=== PATIENT | male | born 1945 | race Caucasian/White ===

== ENCOUNTER 2020-04-28 00:49 | Outpatient (CLI) | payer OTHER, SELFPAY ==
[2020-04-28 18:01] LABS: SARS-CoV-2 RNA PCR Negative
== END 2020-04-28 00:50 | disposition home or self-care (01) ==
LOC: ANHCOVIDDT 00:49
PROVIDERS: PCP Student in an Organized Health Care Education/Training Program; Visit Provider Internal Medicine Gastroenterology
DX: Z01.812 Encounter for preprocedural laboratory examination (principal); Z20.828 Contact with and (suspected) exposure to other viral communicable diseases
CPT/HCPCS: 87635; C9803; U0003

== ENCOUNTER 2020-04-30 01:46 | Day surgery (SDC) | payer OTHER, SELFPAY ==
[2020-04-24 09:36] VITALS: BMI 19.5
[2020-04-30 08:35] VITALS: BP 147/74; RESP 16; TEMP 36.3; O2SAT 100
--- NOTE | 2020-04-30 08:57 | WPDGICN ---
Assessment and Plan Assessment and plan (1) History of colon polyps: Code(s): Z86.010 - Personal history of colonic polyps Status: Acute Assessment and Plan: Patient has had colon polyps in several previous endoscopies. Most recently 2017. Plan is for surveillance colonoscopy now and at intervals in the future. 3-5 years is anticipated. Further recommendations will be given after endoscopy. GI Consult Note Consult date/time: 04/30/20 08:57 HPI: Omar Gil Jr. is a 74 year old male seen in evaluation at the request of Dr Christensen.. Patient was found to have tubular adenomatous colon polyp in 2017. Patient presents today for follow-up examination. His current weight appetite bowel movements are normal. Denies abdominal pain he has had no bleeding in his stool. He has had several colon polyps in the past prior to the last colonoscopy as well. His family history is noncontributory. Review of Systems Review of Systems: All systems reviewed & are unremarkable except as noted in HPI and below PMFSH Social History Social History (System 04/11/20 @ 10:23 by Myriam Mcgraw) Smoking packs per day: 0.5 Smoking cigarettes per day: 10.0 Years smoked: 10 Smoking pack-years: 5.00 Smoking status: Former smoker Tobacco type: cigarettes Alcohol intake: current Drinks per week: 1 Substance use: never Substance use type: does not use Living arrangements: alone Spiritual care concerns: No Meds Home Medications and Allergies Home Medications Medication Instructions Recorded Confirmed Type No Home Medications 04/24/20 04/30/20 History Allergies Allergy/AdvReac Type Severity Reaction Status Date / Time No Known Allergies Allergy Verified 04/30/20 08:42 Vital Signs Vital Signs - 24 hr 04/30/20 08:35 Temperature 97.4 F L Respiratory Rate 16 Blood Pressure 147/74 H Pulse Oximetry 100 Exam Narrative: Exam Narrative: Physical exam reveals patient to be alert. Vital signs stable. HEENT exam unremarkable. Lungs are clear to auscultation and percussion. Heart is without murmur or extra sounds. Abdominal exam bowel sounds are present soft nontender with no organomegaly. Digital external rectal exam is normal.
[2020-04-30] MEDS: LACTATED RINGERS 1,000 ML 150 ML IV CONT (08:58)
--- NOTE | 2020-04-30 08:58 | WPDANESEPPF ---
Anes - Initial Pre Proc Eval Procedure: Operation Date: 04/30/20 09:30 Proposed Procedures p Screening Colonoscopy - Ruy Dong MD Date/Time: 04/30/20 08:58 Surgeon: Ruy Dong MD Pre Op Diagnosis: hx of colon polyps Patient Data Age: 74 Gender: M Height: 5 ft 10 in Weight: 61.1 kg Last Vital Signs Temp 36.3 C L 04/30/20 08:35 Resp 16 04/30/20 08:35 BP 147/74 H 04/30/20 08:35 Pulse Ox 100 04/30/20 08:35 Allergies Allergy/AdvReac Type Severity Reaction Status Date / Time No Known Allergies Allergy Verified 04/30/20 08:42 Home Medications Medication Instructions Recorded Confirmed Type No Home Medications 04/24/20 04/30/20 History Patient hx anesthesia problems: none Family hx anesthesia problems: none PMFSH Past Medical History Medical History (Updated 04/30/20 @ 09:01 by Jaron Bray MD) Skin cancer Social History Social History Smoking packs per day: 0.5 Smoking cigarettes per day: 10.0 Years smoked: 10 Smoking pack-years: 5.00 Smoking status: Former smoker Tobacco type: cigarettes Alcohol intake: current Drinks per week: 1 Substance use: never Substance use type: does not use Living arrangements: alone Spiritual care concerns: No Anes - Eval Final PreProcedure Day of Procedure 04/30/20 08:58 Patient weight: thin Heart: regular rate and rhythm Lungs: clear to auscultation Airway: Mallampati scale class II Neurological: other (alert) Last oral intake: >/= 8 hours ASA classification: II Emergent: no Anesthetic plan: proceed Anesthesia type and monitoring: general GIVS and standard monitoring Informed Consent: The patient's anesthetic plan and its attendant risks and benefits were discussed with the patient/family/POA. Questions were solicited and answers provided to the satisfaction of the patient/family/POA.
[2020-04-30 09:53] VITALS: BP 105/59; PULSE 53; RESP 18; O2SAT 100
[2020-04-30 10:03] VITALS: BP 111/62; PULSE 62; RESP 18; O2SAT 100
[2020-04-30 10:11] VITALS: BP 137/64; PULSE 59; RESP 18; O2SAT 100
== END 2020-04-30 10:54 | disposition home or self-care (01) ==
PROVIDERS: PCP Student in an Organized Health Care Education/Training Program; Visit Provider Internal Medicine Gastroenterology
PROC: 0DJD8ZZ Inspection of Lower Intestinal Tract, Via Natural or Artificial Opening Endoscopic (ICD-10-PCS; CPT 45378; principal; 2020-04-30 09:30)
DX: Z12.11 Encounter for screening for malignant neoplasm of colon (principal); D12.2 Benign neoplasm of ascending colon; D17.5 Benign lipomatous neoplasm of intra-abdominal organs; K64.8 Other hemorrhoids; Z86.010 Personal history of colon polyps; Z87.891 Personal history of nicotine dependence
CPT/HCPCS: 45385; 88305; J2704; J7120

== ENCOUNTER → 2021-03-10 10:06 | Outpatient (CLI) | payer OTHER, SELFPAY ==
--- NOTE | ~2021-03-10 | US_ITS ---
EXAMINATION: US aorta [facility] DATE: 03/10/2021 10:17 INDICATION: Screening for abdominal aortic aneurysm, prior tobacco use TECHNIQUE: Grayscale, color Doppler, and pulsed Doppler images of the aorta and common iliac arteries were obtained. COMPARISON: None. FINDINGS: Maximum vascular dimensions are as follows: Proximal aorta: 2.3 cm Mid aorta: 2.0 cm Distal aorta: 1.8 cm Right common iliac artery: 1.3 cm Left common iliac artery: 1.2 cm There is no evidence of abdominal aortic aneurysm. IMPRESSION: 1. No sonographic evidence of abdominal aortic aneurysm. Reviewed, dictated and finalized at location B.
== END ==
PROVIDERS: PCP Student in an Organized Health Care Education/Training Program; Visit Provider Student in an Organized Health Care Education/Training Program
DX: Z87.891 Personal history of nicotine dependence (principal); Z13.6 Encounter for screening for cardiovascular disorders
CPT/HCPCS: 76706

== ENCOUNTER → 2021-06-18 08:15 | Outpatient (CLI) | payer OTHER, SELFPAY ==
--- NOTE | ~2021-06-18 | US_ITS ---
EXAMINATION: US right upper quadrant DATE: 06/18/2021 08:37 INDICATION: Abnormal levels of other serum enzymes. TECHNIQUE: Multiple grayscale and Doppler ultrasound images of the abdomen were obtained. COMPARISON: None FINDINGS: The visualized portions of the head and body of the pancreas are normal. There is a 1.4 cm cyst in the liver. No liver surface nodularity. There is normal flow in main portal vein. The gallbla dder is normal in size. No gallstones or gallbladder wall thickening. There was no sonographic Yusuf sign. The common duct is normal and measures 5 mm. IMPRESSION: 1. No etiology for abnormal liver function tests. Reviewed, dictated and finalized at location A. [facility] ED
== END ==
PROVIDERS: PCP Student in an Organized Health Care Education/Training Program; Visit Provider Student in an Organized Health Care Education/Training Program
DX: R74.8 Abnormal levels of other serum enzymes (principal)
CPT/HCPCS: 76705

== ENCOUNTER 2024-08-20 10:32 | Outpatient (CLI) | payer OTHER, SELFPAY ==
--- NOTE | ~2024-08-20 | DEXA_ITS ---
Bone Density Report Name: HENRY LEVINE Age: 78 Sex: Male Ethnicity: White Date of : 1945 Indication: screening for osteoporosis; height loss; Referring Provider: MERY BRAGG Study: Bone densitometry was performed. Exam Date: August 20, 2024 Accession number: [id number] Bone Density: Region BMD T-score Z-score Classification AP Spine(L1-L4) 0.925 -1.5 -0.4 Osteopenia Femoral Neck (Left) 0.565 -2.7 -1.2 Osteoporosis Total Hip (Left) 0.656 -2.5 -1.5 Osteoporosis Femoral Neck (Right) 0.523 -3.0 -1.5 Osteoporosis Total Hip (Right) 0.636 -2.6 -1.6 Osteoporosis Total Hip Mean 0.646 -2.6 -1.6 Osteoporosis World Health Organization criteria for BMD impression classify patients as: Normal (T-score at or above -1.0), Osteopenia (T-score between -1.0 and -2.5), or Osteoporosis (T-score at or below -2.5). 10-year Fracture Risk: FRAX not reported because: Some T-score for Spine Total or Hip Total or Femoral Neck at or below -2.5 Clinical Information Provided by Patient: Has used the following medications: Vitamin D, Calcium Patient maximum height was 71 No regular weight bearing exercise Does not regularly consume dairy products Drinks caffeinated beverages Impression: The patient has osteoporosis, based on the Right Femoral Neck T-score. Discussion: INCREASED RISK OF FRACTURE. BONE DENSITY IS UNDESIRABLY LOW AT ONE OR MORE SKELETAL SITES, CONSISTENT WITH OSTEOPOROSIS. This patient's lowest T-score meets the World Health Organization's (WHO) criteria for osteoporosis at one or more sites (T-score -2.5 or below). In untreated patients, the risk of osteoporotic fracture increases approximately two-fold for each 1.0 SD decrease in T-score. Low bone density is not the only risk factor for fracture; also consider factors such as patient's age, frailty or poor health, risk of falling, risk of injury, previous osteoporotic fracture, family history of osteoporosis, cigarette smoking, low body weight, etc. Not everyone with low bone mineral density has osteoporosis; osteomalacia and other metabolic bone disorders should also be considered. Patients who have osteoporosis should be evaluated for specific diseases and conditions (secondary causes) that may cause or contribute to bone loss. The National Osteoporosis Foundation (NOF) recommends pharmacologic intervention for men with BMD at this level (a T-score of -2.5 or below). The patient should follow a healthful lifestyle (good nutrition with adequate calcium and vitamin D, and appropriate weight-bearing exercise). Follow-Up: Consider repeating this study in 2 years to reassess this patient's status, or sooner if there is some new clinical indication. Reported by: DARSHAN on 08/20/2024 11:12:00 AM. Reviewed, dictated and finalized at location [facility]
== END 2024-08-20 10:33 | disposition home or self-care (01) ==
LOC: ANHIMG 10:33
PROVIDERS: PCP Student in an Organized Health Care Education/Training Program; Visit Provider Internal Medicine Endocrinology, Diabetes & Metabolism
DX: M81.0 Age-related osteoporosis without current pathological fracture (principal); M85.89 Other specified disorders of bone density and structure, multiple sites; N25.81 Secondary hyperparathyroidism of renal origin; Z13.820 Encounter for screening for osteoporosis
CPT/HCPCS: 77080

== ENCOUNTER 2024-11-29 14:01 | Outpatient (CLI) | payer OTHER, SELFPAY ==
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
--- OUTSIDE RECORDS SUMMARY | 2024-11-29 14:51 | XMS_ITS | Encounter Summary ---
Author Organization [facility] Address [address] [place] [address] Care Team Providers Care It Security Project Manager Name Role Phone Mil Christensen DO Primary Care Provider + Melinda Hastings RN Unavailable [phone] Encounter Details Date Type Department Care Team (Late st Contact Info) Description 07/03/2024 20linest Message Enc [facility] Medical Group Family & Internal Medicine [facility] [address] [place] [address] Mil Christensen DO [address] [place], [place] [id number] Vaccines? Social History Tobacco Use Types Packs/Day Years Used Date Smoking Tobacco: Former Cigarettes 0.5 10 0 08/01/1959 - 08/01/1969 Smokeless Tobacco: Never Comments:quit 40+ yrs ago re ported on 03/13/20 Alcohol Use Standard Drinks/Week Comments Yes 1.7 (1 standard drink = 0.6 oz p ure alcohol) PHQ-2 Answer Date Recorded Patient Health Questionnaire-2 Score 1 01/23/2024 Sex and Gender Information Value Date Recorded Sex Assigned at Male 09/24/2024 1:50 PM SEISMOGRAPHER Legal Sex Male 9:28 AM CDT Gender Identity Male 09/24/2024 1:50 PM SEISMOGRAPHER Sexual Orientation Not on file documented as of this encounter Progress Notes * Mil Christensen DO - 07/04/2024 8:03 AM CST I am not aware of any contraindication or reason not to do the COVID or flu shot. Would be reasonable to have them given on different days, but is not mandatory. MOGRAPHER documented in this encounter Plan of Treatment Not on file documented as of this encounter Visit Diagnoses Not on filedocumented in this encounter Additional Health Concerns Assessment Noted Time PHQ-9 Depression Total Score: 1 02/11/20 21 2:46 PM CDT documented as of this encounter Care Teams It Security Project Manager Relationship Specialty Start Date End Date Mil Christensen DO [address] [place] [address] PCP - General FAMILY PRACTICE 03/20/20 Melinda Hastings, RN [address] [facility] [address] [place] [address] Registered Nurse CARE MANAGEMENT 06/28/22 documented as of this encounter
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
--- OUTSIDE RECORDS SUMMARY | 2024-11-29 14:51 | XMS_ITS | Encounter Summary ---
Author Organization [facility] Address [address] [place] [address] Care Team Providers Care Armed Security Professional Name Role Phone Mil Christensen DO Primary Care Provider + Melinda Hastings RN Unavailable [phone] Encounter Details Date Type Department Care Team (Late st Contact Info) Description 08/14/2024 mywavest Message Enc [facility] Medical Group Family & Internal Medicine [facility] [address] [place] [address] Mil Christensen DO [address] [place], [place] [phone] imaging Social History Tobacco Use Types Packs/Day Years [...] Sex Assigned at Male 09/24/2024 1:50 PM MANAGER TERMINAL Legal Sex Male 9:28 AM CDT Gender Identity Male 09/24/2024 1:50 PM MANAGER TERMINAL Sexual Orientation Not on file documented as of this encounter Progress Notes * Mil Christensen DO - 08/15/2024 8:26 AM CST It does not specifically need to be done prior to going, but if he's able to obtain it prior to theappointment that is advantageous. GER TERMINAL documented in this encounter Plan of Treatment Not on file documented as of this encounter Visit Diagnoses Not on filedocumented in this encounter Additional Health Concerns Assessment Noted Time PHQ-9 Depression Total Score: 1 02/11/20 21 2:46 PM CDT documented as of this encounter Care Teams Armed Security Professional Relationship Specialty Start Date End Date Mil Christensen DO [address] [place] [address] PCP - General FAMILY PRACTICE 03/20/20 Melinda Hastings, RN [address] [address] Registered Nurse CARE MANAGEMENT 06/28/22 documented as of this encounter
--- OUTSIDE RECORDS SUMMARY | 2024-11-29 14:51 | XMS_ITS | Encounter Summary ---
Author Organization [facility] Address [address] [place] [address] Care Team Providers Care Sterile Tech Name Role Phone Mil Christensen DO Primary Care Provider + Melinda Hastings RN Unavailable [phone] Encounter Details Date Type Department Care Team (Late st Contact Info) Description 01/26/2023 MovableInk Message Enc [facility] Medical [facility] - [facility] [address] [place], [place] [phone] [employer] [facility] Provider Air Quality Message Social History Tobacco Use Types Packs/Day Years Used Date Smoking Tobacco: Former Cigarettes 0.5 10 0 08/01/1959 - 08/01/1969 Smokeless Tobacco: Never Comments:quit 40+ yrs ago re ported on 03/13/20 Alcohol Use Standard Drinks/Week Comments Yes 1.7 (1 standard drink = 0.6 oz p ure alcohol) PHQ-2 Answer Date Recorded Patient Health Questionnaire-2 Score 0 10/01/2022 Sex and Gender Information Value Date Recorded Sex Assigned at Male 09/24/2024 1:50 PM DIRECTOR CPG Legal Sex Male 9:28 AM CDT Gender Identity Male 09/24/2024 1:50 PM DIRECTOR CPG Sexual Orientation Not on file documented as of this encounter Plan of Treatment Not on file documented as of this encounter Visit Diagnoses Not on filedocumented in this encounter Additional Health Concerns Assessment Noted Time PHQ-9 Depression Total Score: 1 02/11/20 21 2:46 PM CDT documented as of this encounter Care Teams Sterile Tech Relationship Specialty Start Date End Date Mil Christensen DO [address] [place] [address] PCP - General FAMILY PRACTICE 03/20/20 Melinda Hastings, RN [address] [facility] [address] [place] [address] Registered Nurse CARE MANAGEMENT 06/28/22 documented as of this encounter
--- OUTSIDE RECORDS SUMMARY | 2024-11-29 14:51 | XMS_ITS | Encounter Summary ---
Author Organization [facility] Address [address] [place] [address] Care Team Providers Care Glove Turner And Former Name Role Phone Mil Christensen DO Primary Care Provider + Melinda Hastings RN Unavailable [phone] Encounter Details Date Type Department Care Team (Late st Contact Info) Description 02/06/2024 QBInternationalt Message Enc [facility] Family & Internal Medicine [facility] [address] [place] [address] Mil Christensen DO [address] [place] [address] post polio Social History Tobacco Use Types Packs/Day Years [...] Sex Assigned at Male 09/24/2024 1:50 PM PATROL GUARD Legal Sex Male 9:28 AM CDT Gender Identity Male 09/24/2024 1:50 PM PATROL GUARD Sexual Orientation Not on file documented as of this encounter Progress Notes * Mil Christensen DO - 02/06/2024 4:26 PM CDT Simona Amaya MD at [facility]. documented in this encounter Plan of Treatment Not on file documented as of this encounter Visit Diagnoses Not on filedocumented in this encounter Additional Health Concerns Assessment Noted Time PHQ-9 Depression Total Score: 1 02/11/20 21 2:46 PM CDT documented as of this encounter Care Teams Glove Turner And Former Relationship Specialty Start Date End Date Mil Christensen DO [address] [place] [address] PCP - General FAMILY PRACTICE 03/20/20 Melinda Hastings, RN [address] [address] Registered Nurse CARE MANAGEMENT 06/28/22 documented as of this encounter
[2024-11-29 15:34] LABS: Hematocrit 42.6 % (42.0-52.0); Mean Corpuscular HGB Conc 32.9 g/dl (32-36); Mean Corpuscular Hemoglobin 32.2 pg (26-34); Mean Corpuscular Volume 97.9 fl (80-100); Mean Platelet Volume 11.1 fl (7.4-10.4); Platelet Count Result 167 k/mm3 (150-375); Red Blood Count 4.35 M/mm3 (4.6-6.20); Red Cell Distribution Width 12.4 % (11.5-14.5); White Blood Count 7.1 K/mm3 (4.5-10.0)
[2024-11-29 17:44] LABS: Parathyroid Intact 64.5 pg/mL (14.5-75.2)
[2024-11-29 18:11] LABS: Cholesterol 176 mg/dL (0-200); HDL Direct 50 mg/dL; Triglycerides 103 mg/dL (<150)
[2024-11-29 18:22] LABS: Vitamin D 25 Hydroxy 46.4 ng/mL
[2024-11-29 18:23] LABS: Alanine Aminotransferase 22 U/L (6-50); Albumin Level 4.5 g/dL (3.5-5.1); Alkaline Phosphatase 90 U/L (38-126); Anion Gap 10 mmol/L (4-12); Aspartate Amino Transferase 28 U/L (17-59); Blood Urea Nitrogen 20 mg/dL (9-20); Calcium 10.3 mg/dL (8.4-10.2); Carbon Dioxide 30 mmol/L (22-30); Chloride 101 mmol/L (98-107); Estimated Glomerular Filt Rate > 60; Glucose 82 mg/dL (65-110); LDL Cholesterol Direct 88 mg/dL; Potassium 4.1 mmol/L (3.4-5.0); Sodium 141 mmol/L (137-145)
[2024-11-29 18:43] LABS: Prostate Specific Antigen 1.4 ng/mL (< OR = 4.0)
[2024-11-29 18:44] LABS: Thyroid Stimulating Hormone 0.838 uIU/mL (0.465-4.680)
[2024-11-30 18:03] LABS: C-Peptide 1.23 ng/mL (0.80-3.85)
[2024-12-01 03:28] LABS: Immunoglobulin A 260 mg/dL (70-320)
[2024-12-02 03:18] LABS: Gliadin AB, IgG <1.0 U/mL
[2024-12-04 09:03] LABS: Albumin 4.3 g/dL (3.8-4.8); Alpha 1 Globulin 0.3 g/dL (0.2-0.3); Alpha 2 Globulin 0.7 g/dL (0.5-0.9); Beta 1 Globulin 0.4 g/dL (0.4-0.6)
[2024-12-04 13:08] LABS: Testosterone Total 428 ng/dL (250-1100)
== END 2024-11-29 14:02 | disposition home or self-care (01) ==
PROVIDERS: PCP Student in an Organized Health Care Education/Training Program; Referring Provider Student in an Organized Health Care Education/Training Program; Visit Provider Internal Medicine Endocrinology, Diabetes & Metabolism
DX: E78.5 Hyperlipidemia, unspecified (principal); E20.9 Hypoparathyroidism, unspecified; M81.0 Age-related osteoporosis without current pathological fracture; Z12.5 Encounter for screening for malignant neoplasm of prostate
CPT/HCPCS: 36415; 80053; 80061; 82306; 82784; 83516; 83937; 83970; 84153; 84155; 84165; 84403; 84443; 84681; 85027; G0103

== ENCOUNTER 2024-12-03 11:12 | Outpatient (CLI) | payer OTHER, SELFPAY ==
--- OUTSIDE RECORDS SUMMARY | 2024-12-03 12:06 | XMS_ITS | Encounter Summary ---
Author Organization [facility] Address [address] [place] [address] Care Team Providers Care Plant Taxonomy Teacher Name Role Phone Mil Christensen DO Primary Care Provider + Melinda Hastings RN Unavailable [phone] Encounter Details Date Type Department Care Team (Late st Contact Info) Description 02/06/2024 Keen Impressionst Message Enc [facility] Medical Group Family & Internal Medicine [facility] [address] [place] [address] Mil Christensen DO [address] [place] [address] post polio Social History Tobacco [...] Assigned at Male 09/24/2024 1:50 PM MANAGER MALL Legal Sex Male 9:28 AM CDT Gender Identity Male 09/24/2024 1:50 PM MANAGER MALL Sexual Orientation Not on file documented as of this encounter Progress Notes * Mil Christensen DO - 02/06/2024 4:26 PM CDT Simona Amaya MD at [facility]. documented in this encounter Plan of Treatment Not on file documented as of this encounter Visit Diagnoses Not on filedocumented in this encounter Additional Health Concerns Assessment Noted Time PHQ-9 Depression Total Score: 1 02/11/20 21 2:46 PM CDT documented as of this encounter Care Teams Plant Taxonomy Teacher Relationship Specialty Start Date End Date Mil Christensen DO [address] [place] [address] PCP - General FAMILY PRACTICE 03/20/20 Melinda Hastings, RN [address] [address] Registered Nurse CARE MANAGEMENT 06/28/22 documented as of this encounter
--- OUTSIDE RECORDS SUMMARY | 2024-12-03 12:06 | XMS_ITS | Clinical Summary ---
Author Organization [facility] Address [address] [place] [address] Care Team Providers Care Basting Marker Name Role Phone Unavailable Primary Care Provider Unavailabl e Source Comments [facility],non-owned Affiliates and Associated Physician Practices is amultiple site organization consisting of ambulatory clinics and hospital sitesin [place], [place], [place] and [place]. This disclosure is being madepursuant to the Care Everywhere program and may not contain all information available regarding this patient. Last updated 18.[facility] Allergies No known active allergies Active Problems [...] Comments Blood Pressure 139/74 06/24/2022 12:19 PM MERCHANDISE MANAGER Pulse 65 06/24/2022 12:19 PM MERCHANDISE MANAGER Temperature 37.3 C (99.2 F) 06/23/2022 8:09 PM MERCHANDISE MANAGER Respiratory Rate 16 06/24/2022 12:19 PM MERCHANDISE MANAGER Oxygen Saturation 99% 06/24/2022 9:29 AM MERCHANDISE MANAGER Inhaled Oxygen Concentration - - Weight 63.5 kg (140 lb) 06/23/2022 8:09 PM MERCHANDISE MANAGER Height 177.8 cm (5' 10 ) 06/23/2022 8:09 PM MERCHANDISE MANAGER Body Mass Index 20.09 06/23/2022 8:09 PM MERCHANDISE MANAGER Plan of Treatment Health Maintenance Due Date [...] patient's age to complete this topic Insurance [facility] MEDICARE [employer] Advance Directives * Full Code (Latest Code Status on File) Date Activated Date Inactivated Comments 06/23/2022 8:59 PM 06/24/2022 2:23 PM
--- OUTSIDE RECORDS SUMMARY | 2024-12-03 12:06 | XMS_ITS | Encounter Summary ---
Author Organization [facility] Address [address] [place] [address] Care Team Providers Care Anodize Machine Operator Name Role Phone Mil Christensen DO Primary Care Provider + Melinda Hastings RN Unavailable [phone] Encounter Details Date Type Department Care Team (Late st Contact Info) Description 08/14/2024 [place] Globalt Message Enc [facility] Medical [facility] Family & Internal Medicine [facility] [address] [place] [address] Mil Christensen DO [address] [place], [place] [id number] imaging Social History Tobacco Use Types Packs/Day [...] Sex Assigned at Male 09/24/2024 1:50 PM PROFESSIONAL POKER PLAYER Legal Sex Male 9:28 AM CDT Gender Identity Male 09/24/2024 1:50 PM PROFESSIONAL POKER PLAYER Sexual Orientation Not on file documented as of this encounter Progress Notes * Mil Christensen DO - 08/15/2024 8:26 AM CST It does not specifically need to be done prior to going, but if he's able to obtain it prior to theappointment that is advantageous. ESSIONAL POKER PLAYER documented in this encounter Plan of Treatment Not on file documented as of this encounter Visit Diagnoses Not on filedocumented in this encounter Additional Health Concerns Assessment Noted Time PHQ-9 Depression Total Score: 1 02/11/20 21 2:46 PM CDT documented as of this encounter Care Teams Anodize Machine Operator Relationship Specialty Start Date End Date Mil Christensen DO [address] [place] [address] PCP - General FAMILY PRACTICE 03/20/20 Melinda Hastings, RN [address] [address] Registered Nurse CARE MANAGEMENT 06/28/22 documented as of this encounter
--- OUTSIDE RECORDS SUMMARY | 2024-12-03 12:06 | XMS_ITS | Encounter Summary ---
Author Organization [facility] Address [address] [place] [address] Care Team Providers Care Boilermaking Supervisor Name Role Phone Mil Christensen DO Primary Care Provider + Melinda Hastings RN Unavailable [phone] Encounter Details Date Type Department Care Team (Late st Contact Info) Description 07/03/2024 [place] Producet Message Enc [facility] Medical Group Family & Internal Medicine [facility] [address] [place] [address] Mil Christensen DO [address] [place], [place] [id number] Vaccines? Social History Tobacco Use Types Packs/Day [...] Sex Assigned at Male 09/24/2024 1:50 PM YARD HAND Legal Sex Male 9:28 AM CDT Gender Identity Male 09/24/2024 1:50 PM YARD HAND Sexual Orientation Not on file documented as of this encounter Progress Notes * Mil Christensen DO - 07/04/2024 8:03 AM CST I am not aware of any contraindication or reason not to do the COVID or flu shot. Would be reasonable to have them given on different days, but is not mandatory. HAND documented in this encounter Plan of Treatment Not on file documented as of this encounter Visit Diagnoses Not on filedocumented in this encounter Additional Health Concerns Assessment Noted Time PHQ-9 Depression Total Score: 1 02/11/20 21 2:46 PM CDT documented as of this encounter Care Teams Boilermaking Supervisor Relationship Specialty Start Date End Date Mil Christensen DO [address] [place] [address] PCP - General FAMILY PRACTICE 03/20/20 Melinda Hastings, RN [address] [facility] [address] [place] [address] Registered Nurse CARE MANAGEMENT 06/28/22 documented as of this encounter
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
--- OUTSIDE RECORDS SUMMARY | 2024-12-03 12:06 | XMS_ITS | Encounter Summary ---
Author Organization [facility] Address [address] [place] [address] Care Team Providers Care Getter Filler Name Role Phone Mil Christensen DO Primary Care Provider + Melinda Hastings RN Unavailable [phone] Encounter Details Date Type Department Care Team (Late st Contact Info) Description 01/26/2023 DNA Guide Message Enc [facility] Medical [facility] - [facility] [address] [place], [place] [id number] [facility] Provider Air Quality Message Social History Tobacco [...] Sex Assigned at Male 09/24/2024 1:50 PM KNURLING MACHINE TENDER Legal Sex Male 9:28 AM CDT Gender Identity Male 09/24/2024 1:50 PM KNURLING MACHINE TENDER Sexual Orientation Not on file documented as of this encounter Plan of Treatment Not on file documented as of this encounter Visit Diagnoses Not on filedocumented in this encounter Additional Health Concerns Assessment Noted Time PHQ-9 Depression Total Score: 1 02/11/20 21 2:46 PM CDT documented as of this encounter Care Teams Getter Filler Relationship Specialty Start Date End Date Mil Christensen DO [address] [place] [address] PCP - General FAMILY PRACTICE 03/20/20 Melinda Hastings, RN 4941 [facility] [address] [place] [address] Registered Nurse CARE MANAGEMENT 06/28/22 documented as of this encounter
[2024-12-03 14:31] LABS: Total Volume 24 Hour Urine 1500 ml
[2024-12-03 15:01] LABS: Creatinine 24 Hour Urine 0.7 gm/24 (1.0-2.0); Creatinine Urine 52.8 mg/dL
[2024-12-05 04:18] LABS: Creatinine, 24 Hr Urine 0.83 g/24 h (0.50-2.15); Total Protein/Creat Rat mg/mg 0.091 (<0.100); Total Protein/Creatinine Ratio 91 mg/g creat (<100)
== END 2024-12-03 11:13 | disposition home or self-care (01) ==
PROVIDERS: PCP Student in an Organized Health Care Education/Training Program; Visit Provider Internal Medicine Endocrinology, Diabetes & Metabolism
DX: M81.0 Age-related osteoporosis without current pathological fracture (principal)
CPT/HCPCS: 81050; 82340; 82570; 84156; 84166

== ENCOUNTER 2025-04-20 11:05 | Outpatient (CLI) | payer OTHER, SELFPAY ==
--- OUTSIDE RECORDS SUMMARY | 2025-04-20 11:10 | XMS_ITS | Encounter Summary ---
Author Organization [facility] Address [address] [place] [address] Care Team Providers Care Orthopaedic Doctor Name Role Phone Mil Christensen DO Primary Care Provider + Melnida Hastings RN Unavailable [phone] Encounter Details Date Type Department Care Team (Late st Contact Info) Description 07/03/2024 PartTect Message Enc [facility] Medical Group Family & Internal Medicine [facility] [address] [place] [address] Mil Christensen DO [address] [place], [place] [id number] Vaccines? Social History Tobacco Use Types Packs/Day [...] Sex Assigned at Male 09/24/2024 1:50 PM PRINTING ROLLER POLISHER Legal Sex Male 9:28 AM CDT Gender Identity Male 09/24/2024 1:50 PM PRINTING ROLLER POLISHER Sexual Orientation Not on file documented as of this encounter Progress Notes * Mil Christensen DO - 07/04/2024 8:03 AM CST I am not aware of any contraindication or reason not to do the COVID or flu shot. Would be reasonable to have them given on different days, but is not mandatory. TING ROLLER POLISHER documented in this encounter Plan of Treatment Not on file documented as of this encounter Visit Diagnoses Not on filedocumented in this encounter Additional Health Concerns Assessment Noted Time PHQ-9 Depression Total Score: 1 02/11/20 21 2:46 PM CDT documented as of this encounter Care Teams Orthopaedic Doctor Relationship Specialty Start Date End Date Mil Christensen DO [address] [place] [address] PCP - General FAMILY PRACTICE 03/20/20 Melinda Hastings, RN 4941 [facility] [address] [place] [address] Registered Nurse CARE MANAGEMENT 06/28/22 documented as of this encounter
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
--- OUTSIDE RECORDS SUMMARY | 2025-04-20 11:10 | XMS_ITS | Encounter Summary ---
Author Organization [facility] Address [address] [place] [address] Care Team Providers Care Butt Sawyer Name Role Phone Mil Christensen DO Primary Care Provider + Melinda Hastings RN Unavailable [phone] Encounter Details Date Type Department Care Team (Late st Contact Info) Description 02/06/2024 Copyright Agentt Message Enc [facility] Family & Internal Medicine [facility] [address] [place] [address] Mil Christensen DO [address] [place] [address] post polio Social History Tobacco [...] Sex Assigned at Male 09/24/2024 1:50 PM CHECKER Legal Sex Male 9:28 AM CDT Gender Identity Male 09/24/2024 1:50 PM CHECKER Sexual Orientation Not on file documented as of this encounter Progress Notes * Mil Christensen DO - 02/06/2024 4:26 PM CDT Simona Amaya MD at [facility]. documented in this encounter Plan of Treatment Not on file documented as of this encounter Visit Diagnoses Not on filedocumented in this encounter Additional Health Concerns Assessment Noted Time PHQ-9 Depression Total Score: 1 02/11/20 21 2:46 PM CDT documented as of this encounter Care Teams Butt Sawyer Relationship Specialty Start Date End Date Mil Christensen DO [address] [place] [id number] PCP - General FAMILY PRACTICE 03/20/20 Melinda Hastings, RN [address] [address] Registered Nurse CARE MANAGEMENT 06/28/22 documented as of this encounter
--- OUTSIDE RECORDS SUMMARY | 2025-04-20 11:10 | XMS_ITS | Encounter Summary ---
Author Organization [facility] Address [address] [place] [address] Care Team Providers Care Orthotics Technician Name Role Phone Mil Christensen DO Primary Care Provider + Melinda Hastings RN Unavailable [phone] Encounter Details Date Type Department Care Team (Late st Contact Info) Description 01/26/2023 Becual Message Enc [facility] - [facility] [address] [place], [place] [id number] [email or web address], [facility] Provider Air Quality Message Social History [...] Sex Assigned at Male 09/24/2024 1:50 PM COORDINATOR HOTELS Legal Sex Male 9:28 AM CDT Gender Identity Male 09/24/2024 1:50 PM COORDINATOR HOTELS Sexual Orientation Not on file documented as of this encounter Plan of Treatment Not on file documented as of this encounter Visit Diagnoses Not on filedocumented in this encounter Additional Health Concerns Assessment Noted Time PHQ-9 Depression Total Score: 1 02/11/20 21 2:46 PM CDT documented as of this encounter Care Teams Orthotics Technician Relationship Specialty Start Date End Date Mil Christensen DO [address] [place] [id number] PCP - General FAMILY PRACTICE 03/20/20 Melinda Hastings, RN [address] [facility] [address] [place] [address] Registered Nurse CARE MANAGEMENT 06/28/22 documented as of this encounter
--- OUTSIDE RECORDS SUMMARY | 2025-04-20 11:10 | XMS_ITS | Clinical Summary ---
Author Organization [place] [id number] [facility] Address [facility] [place] [address] Care Team Providers Care Early Childhood Associate Teacher Name Role Phone Amparo Mil Muniz DO Primary Care Provide r Allergies No known active allergies Medications cetirizine (ZyrTEC) 10 mg tablet Take 1 tablet (10 mg total) by mouth daily Active vitamin D3-vitamin K2 25 mcg (1,000 unit)-90 mcg tablet,disintegrati ngIndications:Parki nson's disease, unspecified whether dyskinesia present, unspecified whether manifestations fluctuate (HCC) Take 1,000 mcg by mouth daily Active vitamin B complex capsuleIndications: Parkinson's disease, unspecified whether dyskinesia present, unspecified whether manifestations fluctuate (HCC) Take 1 capsule by mouth daily Active carbidopa-levodopa (SINEMET) 25-100 mg per tabletIndications:P arkinson's disease, unspecified whether dyskinesia present, unspecified whether manifestations fluctuate (HCC) Take 1.5 tablets by mouth 3 (three) times a day for 14 days, THEN 2 tablets 3 (three) times a day for 14 days, THEN 2.5 tablets 3 (three) times a day for 14 days, THEN 3 tablets 3 (three) times a day. 3492 tablet 5 04/22/20 26 Active Active Problems Problem Noted Date Diagnosed Date Parkinson's disease 03/12/2025 Assessment & Plan (03/12/2025 3:07 PM CDT): This is a 79 years old right handed man with difficulty with tasks requiring core muscles as well as gait and balance for a few years since about 2020. On my exam, he has parkinsonism with rest tremor, rigidity, bradykinesia, and postural instability and no signs of atypical parkinsonism and no history suggestive of secondary causes of parkinsonism making the working diagnosis idiopathic Parkinson disease. He has baseline left arm weakness from childhood poliomyelitis. Although, he has been taking carbidopa levodopa for a month, the dose is low and thus we will titrate it up. I will also refer him to physical therapy for balance training. Plan: - Carbidopa levodopa 25-100 mg 1.5 tablet TID and titrate by 0.5 a tablet per dose every two weeks up to 3 tablets TID. Strategy and side effects including daytime sleepiness, nausea, and orthostatic hypotension were discussed. - Physical therapy for balance training - Aerobic exercise safely for at least 15-20 minutes daily - Although, his cognition is impaired on our neuropsychological test today, he is independent in his instrumental ADL and this is mild cognitive impairment. We will monitor over time. - Follow up in 4 months Carley Singletary MD Neurologist; Instructor of Neurology [facility] in [place] Encounters Date Type Department Care Team Description 03/11/2025 11:00 AM CDT Clinical Support [facility] Movement Disorders [address] [place] [phone] 03/11/2025 10:00 AM CDT Office Visit [facility] Movement Disorders [address] [place] [phone] Carley Singletary MD Parkinson's disease, unspecified whether dyskinesia present, unspecified whether manifestations fluctuate (HCC) (Primary Dx) from Last 3 Months Social History Tobacco Use Types Packs/Day Years Used Date Smoking Tobacco: Former Cigarettes 0.5 65.7 S tarted: 1960 Tobacco Cessation:Counseling Given: Not Answered Personal Safety Answer Date Recorded Getting School Help Needed Not on file 10/15 Sex and Gender Information Value Date Recorded Sex Assigned at Not on file Legal Sex Male 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 Gender Identity Not on file Sexual Orientation Not on file Obstetrics History Last Filed Vital Signs Vital Sign Reading Time Taken Comments Blood Pressure 156/78 03/11/2025 11:27 AM CDT Pulse 89 03/11/2025 11:27 AM CDT Temperature - - Respiratory Rate - - Oxygen Saturation - - Inhaled Oxygen Concentration - - Weight 61.1 kg (134 lb 9.6 oz) 03/11/2025 11:27 AM CDT Height 177.8 cm (5' 10) 03/11/2025 10:03 AM CDT Body Mass Index 19.31 03/11/2025 10:03 AM CDT Plan of Treatment Health Maintenance Due Date Last Done Comments Fall Risk Assessment 1945 Hepatitis C Screening 1945 Hepatitis B Screening 1963 Well Visit 65+ 2010 Zoster Vaccine (3 of 3) 04/03/2024 02/07/20, 01/02/2019, 09/16/2018, Additional history exists Covid-19 Vaccine (2023-09 5 season) 2025 09/07/2024, 06/03/2023, 04/22/2022, Additional history exists Influenza Vaccine (#1) 2025 , 06/03/2023, 04/22/2022, Additional history exists Depression Screening 03/11/2026 03/11/2025 DTaP/Tdap/Td Vaccine (3 - Td or Tdap) 06/23/2032 06/23/2022, 05/26/2017, 12/29/2011, Additional history exists Pneumococcal vaccine 65+ Completed 08/19/2015, 10/31 Insurance Care Teams Early Childhood Associate Teacher Relationship Specialty Start Date End Date Mil Christensen DO [address] [place], [place] [id number] PCP - General Family Medicine 02/28/24
--- OUTSIDE RECORDS SUMMARY | 2025-04-20 11:10 | XMS_ITS | Clinical Summary ---
Author Organization [facility] Address [address] [place] [address] Care Team Providers Care Clarification Operator Name Role Phone Unavailable Primary Care Provider Unavailabl e Source Comments [facility],non-owned Affiliates and Associated Physician Practices is amultiple site organization consisting of ambulatory clinics and hospital sitesin [place]. This disclosure is being madepursuant to the Care Everywhere program and may not contain all information available regarding this patient. Last updated 18.[facility] [employer] Allergies No known active allergies Active Problems [...] Comments Blood Pressure 139/74 06/24/2022 12:19 PM WOOD STAINER Pulse 65 06/24/2022 12:19 PM WOOD STAINER Temperature 37.3 C (99.2 F) 06/23/2022 8:09 PM WOOD STAINER Respiratory Rate 16 06/24/2022 12:19 PM WOOD STAINER Oxygen Saturation 99% 06/24/2022 9:29 AM WOOD STAINER Inhaled Oxygen Concentration - - Weight 63.5 kg (140 lb) 06/23/2022 8:09 PM WOOD STAINER Height 177.8 cm (5' 10) 06/23/2022 8:09 PM WOOD STAINER Body Mass Index 20.09 06/23/2022 8:09 PM WOOD STAINER Plan of Treatment Health Maintenance Due Date Last Done Comments MEDICARE AWV 12 MONTHS 1945 PNEUMOCOCCAL VACCINE 50+ (1 of 1 - PCV) 1995 ZOSTER VACCINE (1 of 2) 1995 Respiratory Syncytial Virus (RSV) Vaccine Pt: or over 60 yrs (1 - 1-dose 75+ series) 2020 DEPRESSION SCREENING 08/01/2024 COVID-19 VACCINE ( season) 2025 04/22/2022, 11/24/2021, 05/18/2021, Additional history exists INFLUENZA VACCINE (#1) 2025 , 05/08/2021, 04/01/2020, Additional history exists DTAP/TDAP/TD VACCINES [...]
--- OUTSIDE RECORDS SUMMARY | 2025-04-20 11:10 | XMS_ITS | Encounter Summary ---
Author Organization [facility] Address [address] [place] [address] Care Team Providers Care Language Asst Name Role Phone Mil Christensen DO Primary Care Provider + Melinda Hastings RN Unavailable [phone] Encounter Details Date Type Department Care Team (Late st Contact Info) Description 08/14/2024 [employer]ty Financet Message Enc [facility] Medical [facility] Family & Internal Medicine [facility] [address] [place] [address] Mil Christensen DO [address] [place], [place] [id number] imaging Social History Tobacco Use Types Packs/Day [...] Sex Assigned at Male 09/24/2024 1:50 PM TRAVEL WRITER Legal Sex Male 9:28 AM CDT Gender Identity Male 09/24/2024 1:50 PM TRAVEL WRITER Sexual Orientation Not on file documented as of this encounter Progress Notes * Mil Christensen DO - 08/15/2024 8:26 AM CST It does not specifically need to be done prior to going, but if he's able to obtain it prior to theappointment that is advantageous. EL WRITER documented in this encounter Plan of Treatment Not on file documented as of this encounter Visit Diagnoses Not on filedocumented in this encounter Additional Health Concerns Assessment Noted Time PHQ-9 Depression Total Score: 1 02/11/20 21 2:46 PM CDT documented as of this encounter Care Teams Language Asst Relationship Specialty Start Date End Date Mil Christensen DO [address] [place] [id number] PCP - General FAMILY PRACTICE 03/20/20 Melinda Hastings, RN [address] [address] Registered Nurse CARE MANAGEMENT 06/28/22 documented as of this encounter
[2025-04-20 13:54] LABS: Creatinine 24 Hour Urine 0.8 gm/24 (1.0-2.0); Total Volume 24 Hour Urine 2200 ml
[2025-04-21 07:08] LABS: Calcium, Urine 4.3 mg/dL (Not Estab.)
== END 2025-04-20 11:06 | disposition home or self-care (01) ==
LOC: ANHLAB 11:08
PROVIDERS: PCP Student in an Organized Health Care Education/Training Program; Visit Provider Internal Medicine Endocrinology, Diabetes & Metabolism
DX: M81.0 Age-related osteoporosis without current pathological fracture (principal)
CPT/HCPCS: 81050; 82340; 82570

== ENCOUNTER 2025-07-10 11:14 | Outpatient (CLI) | payer OTHER, SELFPAY ==
[2025-07-10 12:39] LABS: Albumin Level 4.4 g/dL (3.5-5.1); Anion Gap 5 mmol/L (4-12); Blood Urea Nitrogen 15 mg/dL (9-20); Calcium 10.0 mg/dL (8.4-10.2); Carbon Dioxide 31 mmol/L (22-30); Chloride 103 mmol/L (98-107); Estimated Glomerular Filt Rate > 60; Glucose 90 mg/dL (65-110); Potassium 4.0 mmol/L (3.4-5.0); Sodium 139 mmol/L (137-145)
== END 2025-07-10 11:15 | disposition home or self-care (01) ==
PROVIDERS: PCP Student in an Organized Health Care Education/Training Program; Visit Provider Internal Medicine Endocrinology, Diabetes & Metabolism
DX: R82.994 Hypercalciuria (principal); M81.0 Age-related osteoporosis without current pathological fracture
CPT/HCPCS: 36415; 80069